=== PATIENT | female | born 1965 | race African-American/Black ===

== ENCOUNTER 2017-11-07 14:47 | Emergency (ER) | payer MEDICAID ==
[~2017-11-07] VITALS: Ht 162.6 cm; Wt 87.0 kg
[~2017-11-07 14:47] MED LIST: ASPI-1159 PO; BENA20TA3 PO; COR6 PO; FURO-151 PO; METF500T6 PO; POTA20TA82 PO
[2017-11-07 16:03] LABS: HEMATOCRIT. 35.7 % (36.0-48.0); HEMOGLOBIN. 11.5 g/dL (12.0-16.0); MEAN CORPUSCULAR HEMOGLOBIN 26.2 pg (28.0-32.0); MEAN CORPUSCULAR VOLUME 81.2 fL (81.0-99.0); MEAN PLATELET VOLUME 6.8 fl (7.4-10.4); PLATELET 506 x1000/uL (130-400); RED CELL DISTRIBUTION WIDTH 13.8 % (11.6-14.6)
[2017-11-07 16:09] LABS: CHLORIDE 105 mEq/L (98-107)
[2017-11-07 16:19] LABS: INR 1.1; PARTIAL THROMBOPLASTIN TIME 26.8 sec (23.4-31.0); PROTHROMBIN TIME 11.2 sec (9.4-11.6)
[2017-11-07 16:24] LABS: PLATELET ESTIMATE INCREASED
[2017-11-07] MEDS ORDERED: AZITHROMYCIN 500 MG TABLET PO ONE (18:15)
[2017-11-07 18:46] VITALS: BP 134/79
== END 2017-11-07 19:07 | disposition home or self-care (01) ==
LOC: ER 14:47
DX: J18.9 Pneumonia, unspecified organism (principal); I50.9 Heart failure, unspecified; E11.9 Type 2 diabetes mellitus without complications; I10 Essential (primary) hypertension; Z79.82 Long term (current) use of aspirin
CPT/HCPCS: 36415; 71045; 80053; 83690; 84484; 85025; 85610; 85730; 93005; 99285

== ENCOUNTER 2017-11-13 15:08 | Inpatient (IN) | payer SELFPAY ==
[~2017-11-13] VITALS: Ht 162.6 cm; Wt 88.0 kg
[2017-11-13] MEDS ORDERED: SODIUM CHLORIDE 0.9% 1,000 ML IV ONE (15:39)
[2017-11-13 16:05] LABS: BASOPHILS % 0.8 % (0.0-2.0); EOSINOPHILS % 0.9 % (0.0-5.0); HEMATOCRIT. 37.3 % (36.0-48.0); HEMOGLOBIN. 12.2 g/dL (12.0-16.0); LYMPHOCYTES % 40.4 % (20.0-50.0); MEAN CORPUSCULAR HEMOGLOBIN 26.6 pg (28.0-32.0); MEAN CORPUSCULAR VOLUME 81.1 fL (81.0-99.0); MEAN PLATELET VOLUME 8.1 fl (7.4-10.4); MONOCYTES % 9.1 % (2.0-8.0); NEUTROPHILS % 48.8 % (40.0-76.0); PLATELET 428 x1000/uL (130-400); RED CELL DISTRIBUTION WIDTH 14.3 % (11.6-14.6)
[2017-11-13 16:10] LABS: CHLORIDE 107 mEq/L (98-107)
[2017-11-13 16:12] LABS: PROTHROMBIN TIME 10.8 sec (9.4-11.6)
[2017-11-13] MEDS ORDERED: CEFTRIAXONE 2 G PREMIX 50 ML IV ONE (17:30)
[2017-11-13] MEDS ORDERED: LEVOFLOXACIN 750MG PREMIX 150 ML IV ONE (17:30)
[2017-11-13] MEDS ORDERED: FUROSEMIDE 40MG/4ML VIAL IVP SCH (18:00)
[2017-11-13] MEDS ORDERED: ONDANSETRON HCL 4MG/2ML VIAL IV PRN (22:15)
[2017-11-13] MEDS ORDERED: IPRATROPIUM/ALBUTEROL 0.5-3(2.5)MG/3ML NEB INH PRN (22:15)
[2017-11-13] MEDS ORDERED: ACETAMINOPHEN 325MG TABLET PO PRN (22:15)
[2017-11-13] MEDS ORDERED: MAGNESIUM/ALUMINUM HYDROXIDE/SIMETHICONE 30ML UDC PO PRN (22:15)
[2017-11-13] MEDS ORDERED: DOCUSATE SODIUM 100MG CAPSULE PO PRN (22:15)
[2017-11-13] MEDS ORDERED: GUAIFENESIN 200MG/10ML SUGAR FREE UDC PO PRN (22:15)
[2017-11-13] MEDS ORDERED: HYDROCODONE/ACETAMINOPHEN 5/325MG TABLET PO PRN (22:15)
[2017-11-13] MEDS ORDERED: CLONIDINE 0.1MG TABLET PO PRN (22:15)
[2017-11-13] MEDS ORDERED: ENOXAPARIN 40MG/0.4ML SYR SUBCUT SCH (22:30)
[2017-11-13 22:40] VITALS: BP 131/68
[2017-11-13] MEDS ORDERED: DEXTROSE 50% WATER 50ML SYRINGE IV PRN (23:15)
[2017-11-14] MEDS ORDERED: SPIR25TA6 PO (01:21)
[2017-11-14 04:00] VITALS: BP 123/82
[2017-11-14 05:54] LABS: BASOPHILS % 0.3 % (0.0-2.0); EOSINOPHILS % 0.7 % (0.0-5.0); HEMATOCRIT. 36.9 % (36.0-48.0); HEMOGLOBIN. 12.2 g/dL (12.0-16.0); LYMPHOCYTES % 42.9 % (20.0-50.0); MEAN CORPUSCULAR HEMOGLOBIN 26.5 pg (28.0-32.0); MEAN CORPUSCULAR VOLUME 80.5 fL (81.0-99.0); MEAN PLATELET VOLUME 7.8 fl (7.4-10.4); MONOCYTES % 9.3 % (2.0-8.0); NEUTROPHILS % 46.8 % (40.0-76.0); PLATELET 410 x1000/uL (130-400); RED BLOOD CELL COUNT 4.58 mill/uL (4.2-5.4); RED CELL DISTRIBUTION WIDTH 14.4 % (11.6-14.6)
[2017-11-14 07:07] LABS: CHLORIDE 103 mEq/L (98-107)
[2017-11-14 07:18] LABS: HDL CHOLESTEROL 38 mg/dL (40-59); LDL CHOLESTEROL 156 mg/dL (5-100)
[2017-11-14 07:19] LABS: CREATINE KINASE 104 IU/L (26-192); T4 FREE 1.46 ng/dL (0.76-1.46)
[2017-11-14 07:29] LABS: CREATINE KINASE MB FRACTION 1.3 ng/mL (0.5-3.6)
[2017-11-14] MEDS: INSULIN LISPRO 100 UNITS/ML SUBCUT SCH ×4 (07:40→21:00)
[2017-11-14] MEDS: BLOOD SUGAR DIAGNOSTIC STRIP TEST SCH ×4 (07:45→21:00)
[2017-11-14 08:00] VITALS: BP 109/58
[2017-11-14] MEDS: ASPIRIN 81MG EC TABLET PO SCH (08:26)
[2017-11-14] MEDS: FUROSEMIDE 40MG/4ML VIAL IV SCH (08:26)
[2017-11-14] MEDS ORDERED: IPRATROPIUM/ALBUTEROL 0.5-3(2.5)MG/3ML NEB HHN PRN (09:00)
[2017-11-14] MEDS: GUAIFENESIN 600MG ER TABLET PO SCH ×2 (10:49→21:22)
[2017-11-14 15:40] LABS: CREATINE KINASE 98 IU/L (26-192)
[2017-11-14 15:41] LABS: CREATINE KINASE MB FRACTION 1.6 ng/mL (0.5-3.6)
[2017-11-14 16:00] VITALS: BP 110/65
[2017-11-14] MEDS: LEVOFLOXACIN 500MG PREMIX 100 ML IV SCH (17:26)
[2017-11-14] MEDS: IPRATROPIUM/ALBUTEROL 0.5-3(2.5)MG/3ML NEB HHN SCH ×2 (17:27→21:01)
[2017-11-14 20:00] VITALS: BP 117/68
[2017-11-14] MEDS: ENOXAPARIN 30MG/0.3ML SYR SUBCUT SCH (21:22)
[2017-11-15] VITALS: BP 137/79
[2017-11-15] MEDS: IPRATROPIUM/ALBUTEROL 0.5-3(2.5)MG/3ML NEB HHN SCH ×4 (02:26→20:41)
[2017-11-15 04:00] VITALS: BP 135/78
[2017-11-15] MEDS: BLOOD SUGAR DIAGNOSTIC STRIP TEST SCH ×4 (06:21→20:05)
[2017-11-15] MEDS: INSULIN LISPRO 100 UNITS/ML SUBCUT SCH ×4 (06:42→21:18)
[2017-11-15 08:00] VITALS: BP 122/81
[2017-11-15] MEDS: GUAIFENESIN 600MG ER TABLET PO SCH ×2 (08:59→20:00)
[2017-11-15] MEDS: ASPIRIN 81MG EC TABLET PO SCH (08:59)
[2017-11-15] MEDS: ENOXAPARIN 30MG/0.3ML SYR SUBCUT SCH ×2 (08:59→20:00)
[2017-11-15] MEDS: FUROSEMIDE 40MG/4ML VIAL IV SCH (08:59)
[2017-11-15] MEDS: METHYLPREDNISOLONE SOD SUCC 40 MG/ML VIAL IV SCH ×2 (10:07→17:11)
[2017-11-15 12:00] VITALS: BP 121/68
[2017-11-15 16:00] VITALS: BP 119/68
[2017-11-15] MEDS: LEVOFLOXACIN 500MG PREMIX 100 ML IV SCH (17:12)
[2017-11-15 20:00] VITALS: BP 117/67
[2017-11-16] VITALS: BP 119/70
[2017-11-16] MEDS: METHYLPREDNISOLONE SOD SUCC 40 MG/ML VIAL IV SCH ×2 (01:20→08:42)
[2017-11-16] MEDS: IPRATROPIUM/ALBUTEROL 0.5-3(2.5)MG/3ML NEB HHN SCH ×2 (01:24→07:22)
[2017-11-16 04:00] VITALS: BP 125/73
[2017-11-16] MEDS: BLOOD SUGAR DIAGNOSTIC STRIP TEST SCH ×2 (06:13→12:09)
[2017-11-16] MEDS: INSULIN LISPRO 100 UNITS/ML SUBCUT SCH ×2 (06:19→12:12)
[2017-11-16 06:35] LABS: BASOPHILS % 0.2 % (0.0-2.0); HEMATOCRIT. 36.2 % (36.0-48.0); HEMOGLOBIN. 11.9 g/dL (12.0-16.0); LYMPHOCYTES % 16.6 % (20.0-50.0); MEAN CORPUSCULAR HEMOGLOBIN 26.6 pg (28.0-32.0); MEAN CORPUSCULAR VOLUME 81.3 fL (81.0-99.0); MEAN PLATELET VOLUME 8.4 fl (7.4-10.4); MONOCYTES % 1.5 % (2.0-8.0); NEUTROPHILS % 81.7 % (40.0-76.0); PLATELET 371 x1000/uL (130-400); RED BLOOD CELL COUNT 4.46 mill/uL (4.2-5.4); RED CELL DISTRIBUTION WIDTH 14.1 % (11.6-14.6)
[2017-11-16 06:39] LABS: CHLORIDE 101 mEq/L (98-107)
[2017-11-16 08:00] VITALS: BP 130/74
[2017-11-16] MEDS: ASPIRIN 81MG EC TABLET PO SCH (08:42)
[2017-11-16] MEDS: FUROSEMIDE 40MG/4ML VIAL IV SCH (08:42)
[2017-11-16] MEDS: ENOXAPARIN 30MG/0.3ML SYR SUBCUT SCH (08:42)
[2017-11-16] MEDS: GUAIFENESIN 600MG ER TABLET PO SCH (08:42)
[2017-11-16 11:19] VITALS: BP 130/74
[2017-11-16 12:00] VITALS: BP 132/73
== END 2017-11-16 12:25 | disposition home or self-care (01) | DRG 720 ==
LOC: ER 15:08 → 8WST 19:46 → EDBEDREQSVC 20:03 → ENRESERV 20:25
PROVIDERS: ADMIT Hospitalist; ATTEND Hospitalist
DX: A41.9 Sepsis, unspecified organism (principal); J96.00 Acute respiratory failure, unspecified whether with hypoxia or hypercapnia; I50.23 Acute on chronic systolic (congestive) heart failure; I11.0 Hypertensive heart disease with heart failure; J18.9 Pneumonia, unspecified organism; E11.9 Type 2 diabetes mellitus without complications; Z82.49 Family history of ischemic heart disease and other diseases of the circulatory system; Z83.3 Family history of diabetes mellitus
CPT/HCPCS: 36415; 71045; 71046; 80053; 80061; 82550; 82553; 82962; 83605; 83690; 83880; 84439; 84443; 84484; 85025; 85610; 85730; 87040; 93005; 93306; 93970; 94640; 96365; 96375; 99285; J1650; J1815; J1940; J1956; J2920; J7030; J7040; J7050; J7620

== ENCOUNTER 2019-11-09 21:05 | Emergency (ER) | payer MEDICAID ==
[~2019-11-09] VITALS: Ht 160 cm; Wt 93.0 kg
[~2019-11-09 21:05] MED LIST changes: -ASPI-1159 PO; +ASPI-1497 PO; +BENA20TA10 PO; -BENA20TA3 PO; +METF-414 PO; -METF500T6 PO; +SPIR25TA6 PO
[2019-11-09 23:40] LABS: BASOPHILS % 0.7 % (0.0-2.0); EOSINOPHILS % 0.6 % (0.0-5.0); HEMATOCRIT. 41.1 % (36.0-48.0); HEMOGLOBIN. 13.6 g/dL (12.0-16.0); LYMPHOCYTES % 21.8 % (20.0-50.0); MEAN CORPUSCULAR HEMOGLOBIN 27.5 pg (28.0-32.0); MEAN CORPUSCULAR VOLUME 83.1 fL (81.0-99.0); MEAN PLATELET VOLUME 8.2 fl (7.4-10.4); MONOCYTES % 8.3 % (2.0-8.0); NEUTROPHILS % 68.6 % (40.0-76.0); PLATELET 254 x1000/uL (130-400); RED BLOOD CELL COUNT 4.95 mill/uL (4.2-5.4); RED CELL DISTRIBUTION WIDTH 16.9 % (11.6-14.6)
[2019-11-09 23:42] LABS: CHLORIDE 108 mEq/L (98-107)
[2019-11-10 01:00] VITALS: BP 97/64
[2019-11-10] MEDS ORDERED: FUROSEMIDE 40MG TABLET PO ONE (01:30)
== END 2019-11-10 01:55 | disposition home or self-care (01) ==
LOC: ER 21:05
DX: I13.10 Hypertensive heart and chronic kidney disease without heart failure, with stage 1 through stage 4 chronic kidney disease, or unspecified chronic kidney disease (principal); R60.0 Localized edema; E11.22 Type 2 diabetes mellitus with diabetic chronic kidney disease; N18.9 Chronic kidney disease, unspecified; Z79.84 Long term (current) use of oral hypoglycemic drugs; Z79.82 Long term (current) use of aspirin
CPT/HCPCS: 36415; 71045; 80053; 83880; 84484; 85025; 93005; 99285